=== PATIENT | male | born 1955 | race Caucasian/White ===

== ENCOUNTER → 2018-05-04 | Outpatient (CLI) | payer BC ==
[~2018-05-04] MED LIST: NO CURRENT MEDS
--- NOTE | 2018-05-04 11:00 | RADIOLOGY IMAGING REPORT ---
FACILITY: [facility] PATIENT NAME: Anthony Hopkins : 1955 MR: [id number] V: [id number] EXAM DATE: ORDERING PHYSICIAN: MARVA ONEILL TECHNOLOGIST: Location: [facility] [place] Patient: Anthony Hopkins : 1955 Visit/Account:[id number] Date of Sevice: 05/04/2018 MRI of the lumbar spine Indication: Chronic low back pain Comparison: None available. Technique: Sagittal T2-weighted, sagittal STIR, sagittal T1-weighted, and axial T2-weighted images of the lumbar spine were obtained. Findings: The conus terminates normally at level of L1 Moderate endplate changes at T11-12 and T12-L1. There is no abnormal signal within the visualized spinal cord, The vertebral body heights are well maintained. Mild disc desiccation and disc space narrowing at L5-S1. Axial images extend from T12-S1. Sagittal images of T11-T12 are unremarkable without significant central stenosis or neural foraminal narrowing. T12-L1: No significant central stenosis or neural foraminal narrowing. L1-L2: No significant central stenosis or neural foraminal narrowing. L2-L3: No significant central stenosis or neural foraminal narrowing. L3-L4: Minimal diffuse disc bulge and facet arthropathy results in overall no significant central s tenosis or foraminal narrowing. L4-L5: Mild diffuse disc bulge and small superimposed central disc protrusion causes overall minimal central stenosis. There is mild foraminal narrowing bilaterally. Small posterior annular fissure al so seen. L5-S1: Mild diffuse disc bulge seen with a large superimposed left lateral recess disc protrusion c auses severe lateral recess narrowing and abuts the descending left S1 nerve. There is mild right-si ded neural foraminal narrowing and moderate left-sided neural foraminal narrowing as well. Impression: 1. Degenerative change lumbar spine as above most significant at L5-S1 where there is a large broad- based left lateral recess disc protrusion causes severe lateral recess narrowing abutting the descend ing left S1 nerve. Report Dictated By: Rory Díaz MD at 05/04/2018 10:49 AM Report E-Signed By: Rory Díaz MD at 05/04/2018 10:55 AM [id number]
== END ==
LOC: MRI 00:38
DX: M47.896 Other spondylosis, lumbar region (principal)
CPT/HCPCS: 72148